=== PATIENT | female | born 1975 | race African-American/Black ===

== ENCOUNTER 2021-05-30 20:34 | Emergency (ER) | payer OTHER ==
[~2021-05-30] VITALS: Ht 160 cm; Wt 75.3 kg
[2021-05-30] MEDS ORDERED: PRILOSEC OTC20 MG (20:54)
[2021-05-30] MEDS ORDERED: METHOCARBAMOL500 M2 PO (21:28)
[2021-05-30] MEDS ORDERED: MEDROLDOSEPACK PO (21:28)
[2021-05-30 23:01] VITALS: BP 136/73
== END 2021-05-30 23:05 | disposition home or self-care (01) ==
LOC: ER 20:34
DX: M54.41 Lumbago with sciatica, right side (principal); F17.210 Nicotine dependence, cigarettes, uncomplicated; F12.90 Cannabis use, unspecified, uncomplicated; Z79.899 Other long term (current) drug therapy